=== PATIENT | female | born 1950 | race Caucasian/White ===

== ENCOUNTER 2023-10-01 17:19 | Emergency (ER) | payer MEDICARE, OTHER, SELFPAY ==
[2023-10-01 17:24] VITALS: BP 151/94
[2023-10-01 17:50] LABS: % Basophils 1.1 % (0-2); % Eosinophils 1.2 % (0-6); % Immature Granulocytes 0.5 % (0-0.5); % Lymphocytes 6.6 % (20.5-51.1); % Monocytes 6.6 % (1.7-9.3); Absolute Basophils 0.1 10^3/uL (0-0.2); Absolute Eosinophils 0.1 10^3/uL (0-0.7); Absolute Immature Granulocytes 0.1 10^3/uL (0-0.05); Absolute Lymphocytes 0.7 10^3/uL (1.2-3.4); Absolute Monocytes 0.7 10^3/uL (0.1-0.6); Absolute Neutrophils 9.2 10^3/uL (1.4-6.5); Hematocrit 36.7 % (37.0-47.0); Hemoglobin 12.4 g/dL (12.0-16.0); Mean Corp Hgb Conc. 33.8 g/dL (33.0-37.0); Mean Corpuscular Hgb 31.3 pg (27.0-31.0); Mean Corpuscular Volume 92.7 fL (81.0-99.0); Mean Platelet Volume 9.6 fL (7.4-10.4); Nucleated Red Blood Cells % 0 %; Platelet Count 440 10^3/uL (130-400); Red Blood Cell Count 3.96 10^6/uL (4.20-5.40); Red Cell Dist. Width 12.8 % (11.5-14.5)
[2023-10-01 18:12] LABS: ALT (SGPT) 20 U/L (0-35); AST (SGOT) 26 U/L (14-36); Alkaline Phosphatase 71 U/L (38-126); Blood Urea Nitrogen 9 mg/dl (7-17); Calcium 9.9 mg/dl (8.4-10.2); Carbon Dioxide 27 mmol/L (22-30); Chloride 95 mmol/L (98-107); Glucose 119 mg/dl (70-99); Potassium 4.3 mmol/L (3.5-5.1); Sodium 133 mmol/L (135-145); Total Bilirubin 0.5 mg/dl (0.2-1.3); Total Protein 7.1 g/dl (6.3-8.2); eGFR > 60.00
[2023-10-01 18:19] LABS: COVID-19 Antigen Negative (Negative)
[2023-10-01 18:23] LABS: NT-proBNP 90.6 pg/ml; Troponin I < 0.012 ng/ml
[2023-10-01] MEDS: DECADRON 10 MG PO (20:02)
[2023-10-01] MEDS: DUONEB 3 ML INH (20:03)
--- NOTE | 2023-10-01 21:58 | ED.GENMED ---
History of Present Illness
General
Chief Complaint: Cold/Flu/URI Symptoms
Source: patient
Exam Limitations: none
Time Seen by Provider: 10/01/23 18:49
Nursing documentation reviewed up to this point in time: agreed with
Travel History
Have you had any contact with someone who has COVID-19?: No
Do you have any symptoms of coronavirus? Fever > 100 degrees, chills, cough, shortness of breath, sore throat, loss of taste or smell, muscle aches, or headache?: No
History of Present Illness
History of Present Illness:
72-year-old female ex-smoker, history of HTN, GERD, anxiety, HTN, has been told she has COPD but it has never 'bothered me,' presents stating she has had 2 to 3 weeks of a cough, decreased appetite and dyspnea on exertion stating 'I cannot even walk
across the room without getting short of breath. She states her cough is productive of yellow sputum. She went to urgent care on 09/20 and was started on Augmentin 875 twice daily and benzonatate capsules with no improvement, went back to urgent
care on 09/23 and was given a prescription for albuterol inhaler which she has not filled yet. She denies fever or chills. Denies shortness of breath. Denies N/V/D/C.
Past History
Past History
ED Past Medical History: GERD, HTN and Psychiatric (Anxiety)
ED Past Surgical History: Gynecological
Social History
Tobacco: Former smoker
Alcohol: None
Personal:
Living: with family
Family History
Family History: Early CAD
Review of Systems
Review of Systems
Allergies reviewed?: Yes
All Other Systems: ROS reviewed and negative except as documented in HPI and ROS
Constitutional: Denies fever
EENT: Denies sore throat
Respiratory: Reports cough and trouble breathing (COSME)
Cardiac: Denies chest pain
ABD/GI: Denies abdominal pain, nausea, vomiting or diarrhea
: Denies dysuria or difficulty voiding
Musculoskeletal: Reports no symptoms
Skin: Reports no symptoms
Neurological: Reports no symptoms
Phy Exam
Physical Exam
Physical Exam:
GENERAL: No acute distress. A&Ox3.
CONSTITUTIONAL: Afebrile.
EYES: clear, conjunctivae normal
ENMT: moist mucus membranes, Pharynx nl
RESPIRATORY: Regular respirations, nonlabored, lungs with mild expiratory wheezes, decreased BS
CARDIOVASCULAR: Regular rate and rhythm, no murmurs, no rubs.
GI: Soft, nontender, normal BS
MUSCULOSKELETAL: Moves with ease. Well perfused.
SKIN: Warm, dry, pink
PSYCH: Normal mood and affect. Well kept, interactive and appropriate
NEUROLOGIC: Awake, alert and oriented. No focal neurological deficits
Course
Orders/Labs/Results
Orders:
Orders
10/01/23 17:29
Electrocardiogram (*1) Urgent
Reason for Study: Shortness of Breath
CR Chest - 2 Views Urgent
Comment:
Reason For Exam: shortness of breath
10/01/23 17:30
EKG- Treatment ONCE
10/01/23 17:36
COVID-19 Antigen Urgent
Source: Nasal Swab
Complete Blood Count/With Diff Urgent
Comprehensive Metabolic Panel Urgent
NT-proBNP Urgent
Troponin I Urgent
Influenza A+B Rapid Molecular Urgent
[place] Source: Nasal Swab
Specimen Description:
10/01/23 19:13
Ipratropium/Albuterol Sulfate [Duoneb] 3 ml INH R NOW ONE
10/01/23 19:15
Dexamethasone [Decadron] 10 mg PO NOW STA
10/01/23 22:16
LevoFLOXacin [Levaquin] 750 mg PO NOW STA
Abnormal Lab Results
10/01/23
17:36
WBC 11.0 H 10^3/uL
(4.8-10.8)
RBC 3.96 L 10^6/uL
(4.20-5.40)
Hct 36.7 L %
(37.0-47.0)
MCH 31.3 H pg
(27.0-31.0)
Plt Count 440 H 10^3/uL
(130-400)
Abs Immat Gran (auto) 0.1 H 10^3/uL
(0-0.05)
Absolute Neuts (auto) 9.2 H 10^3/uL
(1.4-6.5)
Absolute Lymphs (auto) 0.7 L 10^3/uL
(1.2-3.4)
Absolute Monos (auto) 0.7 H 10^3/uL
(0.1-0.6)
Neutrophils % 84.0 H %
(42.2-75.2)
Lymphocytes % 6.6 L %
(20.5-51.1)
Sodium 133 L mmol/L
(135-145)
Chloride 95 L mmol/L
(98-107)
Creatinine 0.5 L mg/dL
(0.6-1.0)
Glucose 119 H mg/dl
(70-99)
10/01/23 17:36
10/01/23 17:36
Vital Signs
Initial and Last Documented VS:
Initial Vital Signs
Temp Pulse Resp BP Pulse Ox
98.3 F 103 18 151/94 96
10/01/23 17:24 10/01/23 17:24 10/01/23 17:24 10/01/23 17:24 10/01/23 17:24
Last Documented Vital Signs
Temp Pulse Resp BP Pulse Ox
98.3 F 103 18 151/94 96
10/01/23 17:24 10/01/23 17:24 10/01/23 17:24 10/01/23 17:24 10/01/23 17:24
Compressed Yeast Supervisor consulted with Physician
Compressed Yeast Supervisor consulted with physician?: Yes
Name of Physician Consulted: Shari
MDM/Problems Addressed
Differential Diagnosis Includes:
COVID, bronchitis, influenza, pneumonia
MDM/Problems Addressed:
72-year-old female ex-smoker, history of HTN, GERD, anxiety, HTN, has been told she has COPD but it has never 'bothered me,' presents stating she has had 2 to 3 weeks of a cough, decreased appetite and dyspnea on exertion stating 'I cannot even walk
across the room without getting short of breath. She states her cough is productive of yellow sputum. She went to urgent care on 09/20 and was started on Augmentin 875 twice daily and benzonatate capsules with no improvement, went back to urgent
care on 09/23 and was given a prescription for albuterol inhaler which she has not filled yet. She denies fever or chills. Denies shortness of breath. Denies N/V/D/C.
Afebrile
10/01/2023 1900 PM
CBC with mildly elevated neutrophils
CMP with no clinically significant abnormality
Troponin normal
BNP normal
COVID-negative
Influenza negative
Patient pulse ox 92 to 94% on room air at rest
10/01/2023 2204 PM
After DuoNeb, Decadron IV pulse ox is maintaining at 94 to 95% on room air. Patient states she does feel better. She has intermittent cough with yellow sputum.
Chest x-ray: Radiology for read: Right lower lobe pneumonia
10/01/2023 2205 PM
Patient ambulated around the hallway and maintained her pulse ox at 94 to 95%.
She is stable to be discharged home and is comfortable going home
Questionable allergy to Tetracycline, failing Augmentin, Prescription for Levaquin 750 daily x 7 days ordered. she has prescription for albuterol inhaler waiting at pharmacy
She has a pre scheduled appointment with her PCP tomorrow which she will keep
Chronic conditions affecting care: COPD
*Critical Care Note
Total Time (30-74mins, 75-104mins- exclusive of procedures): Not Applicable
ED Attending Note
-
Portions of this chart may have been created with voice recognition software.� Occasional wrong word or��sound alike� substitutions may have occurred due to the inherent limitations of voice recognition software.
Discharge Plan
Departure
Patient Disposition: Home (Routine Discharge)
Date of Disposition: 10/01/23
Time of Disposition: 21:57
Patient with high blood pressure during this ER visit?: Yes
Condition: Fair
Covid-19: Negative COVID-19
Discharge Problem:
Pneumonia, community aquired
Instructions: Community-Acquired Pneumonia, Adult (DC)
Prescriptions:
New
levofloxacin 750 mg tablet
750 mg PO DAILY 6 Days Qty: 6 0RF
No Action
metoprolol succinate 50 MG tablet extended release 24 hr
50 mg PO DAILY
aspirin,buffd-calcium carb-mag 325 MG tablet
325 mg PO DAILY
alprazolam 0.25 MG tablet
0.25 mg PO DAILY
naproxen 500 MG tablet,delayed release (DR/EC)
500 mg PO BID
amoxicillin-pot clavulanate 1 EACH tablet
1 ea PO BID
levofloxacin 500 MG tablet
500 mg PO DAILY 7 Days 0RF
Referrals:
Shelby Downey, [Family Provider] - Keep scheduled appt
Activity Restrictions/Additional Instructions:
As we discussed, due to the questionable allergy to doxycycline, and the fact that you have been on Augmentin for 6 days with no improvement, I sent a prescription to your pharmacy for Levaquin 750 mg daily for the next 6 days, you received your
first dose here today.
Drink plenty of fluids
See your doctor tomorrow as scheduled
Interventions
Interventions:
*Risk Screen - Suicide Last Done: 10/01/23 22:39
*General Assessment Last Done: 10/01/23 22:39
*ED COVID-19 Vaccine History Last Done: 10/01/23 17:29
*Nursing Disposition Last Done: 10/01/23 22:39
ED- Pulmonary Assessment Last Done: 10/01/23 20:07
Discharge Date and Time
Discharge Date/Time: 10/01/23 22:42
[2023-10-01] MEDS: LEVAQUIN 750 MG PO (22:31)
== END 2023-10-01 22:42 | disposition home or self-care (01) ==
LOC: EMR 17:19
PROVIDERS: Emergency Medicine; EMERGENCY PHYSICIAN Emergency Medicine; FAMILY PHYSICIAN Family Medicine Geriatric Medicine
DX: J18.9 Pneumonia, unspecified organism (principal); I10 Essential (primary) hypertension; K21.9 Gastro-esophageal reflux disease without esophagitis; Z87.891 Personal history of nicotine dependence; F41.9 Anxiety disorder, unspecified
CPT/HCPCS: 99283; 94640; 71046; 80053; 83880; 84484; 85025; 87502; 87811; 93005

== ENCOUNTER 2025-05-04 22:32 | Emergency (ER) | payer MEDICARE, OTHER, SELFPAY ==
[2025-05-04 22:35] VITALS: BP 142/69
[2025-05-05 02:18] VITALS: BP 136/59
--- NOTE | 2025-05-05 02:29 | ED.SKININJ ---
HPI-Injury
General
Chief Complaint: Skin Problem
Source: patient
Exam Limitations: none
Time Seen by Provider: 05/05/25 02:12
Nursing documentation reviewed up to this point in time: agreed with
History of Present Illness-Injury
Initial Injury comments:
Note:
CHIEF COMPLAINT(S)
Itchy rash.
HISTORY OF PRESENT ILLNESS
The patient is a 74-year-old female who presents with a rash that she believes may be related to poison kathrine exposure. The rash developed after working on a property and spending time in a large garage. She describes the rash as appearing similar to
poison kathrine on one side, but on the other side, areas appear potentially infected. However, there is no current evidence of infection such as tracking or redness. The patient is concerned about whether the rash could be insect bites or poison kathrine,
and it has been waking her up during the night.
The rash is not accompanied by systemic symptoms, and the patient denies any history of diabetes. She mentions having a systemic steroid, Dexamethasone, available for use. The patient is considering the use of both topical and oral treatments. She
is advised to proceed with a one-time dose of an oral steroid to manage symptoms, along with using topical Benadryl cream and oglo-ans-sonpeyx 1% hydrocortisone cream as needed.
There is also concern about a possible infestation in the house, as they have noticed similar rashes in the past. She is advised to shower quickly and leave shoes outside.
PHYSICAL EXAM
General: Alert, no acute distress.
Skin: Rash consistent with poison kathrine, no evidence of infection.
Neck: Supple, trachea midline.
Eye, Ears, Nose, Mouth, and Throat: Oral mucosa moist.
Cardiovascular: Normal peripheral perfusion, No edema.
Respiratory: Respirations are non-labored.
Gastrointestinal : Abdomen nondistended.
Back: Normal range of motion, Normal alignment.
Musculoskeletal: Normal ROM, normal strength.
Neurological: Alert and oriented to person, place, time, and situation, No focal neurological deficit observed.
Psychiatric: Cooperative, appropriate mood & affect.
PLAN
1. Administer a one-time dose of oral steroid, Dexamethasone, to manage the rash.
2. Continue using Benadryl cream externally for itch relief.
3. Use obvo-tgv-kawmbla 1% hydrocortisone cream as needed.
4. Patient advised to take oral Benadryl at night to help with sleep and reduce itching.
5. Patient advised on environmental control measures: shower after potential exposure and leave shoes outside to prevent re-exposure to potential irritants.
DIFFERENTIAL DIAGNOSIS
The Differential Diagnosis includes, in no particular order and is not limited to:
1. Poison Kathrine Dermatitis
2. Insect Bites
3. Allergic Dermatitis
4. Contact Dermatitis
5. Fungal Infection
6. Cellulitis
7. Psoriasis
8. Eczema
9. Scabies
10. Drug Rash
Disposition:
SUMMARY OF ENCOUNTER
The patient, a 74-year-old female, presented with an itchy rash potentially related to poison kathrine or insect bites after working in a garden and cleaning an old residence. Examination revealed a pruritic linear rash and punctate lesions, especially
around the ankles, suggestive of bug bites. The patients symptoms include itchiness severe enough to disturb sleep.
ASSESSMENT
The rash and punctate lesions are consistent with poison kathrine dermatitis or insect bites. The presentation suggests possible contact dermatitis or allergic reaction.
EMERGENCY TREATMENTS ADMINISTERED
A one-time dose of oral Dexamethasone was administered. The patient is advised to use jebp-dre-mspziug 1% hydrocortisone cream.
PLAN
The patient is advised to continue using topical diphenhydramine (Benadryl) cream for itch relief and take oral diphenhydramine at night to aid sleep. Environmental control measures, such as showering after exposure and leaving shoes outside, are
recommended.
PATIENT EDUCATION AND COUNSELING
The patient was counseled on the potential causes of the rash, including poison kathrine and insect bites, and advised on preventive measures to avoid re-exposure.
MEDICATION RECONCILIATION
1. Dexamethasone, one-time oral dose administered.
2. Diphenhydramine cream (topical) for itch relief.
3. 1% Hydrocortisone cream (ovtp-xyf-doikqeu) for topical use as needed.
MEDICAL DECISION MAKING
- Complexity of Data Reviewed: The differential diagnosis includes poison kathrine dermatitis, insect bites, allergic dermatitis, contact dermatitis, fungal infection, cellulitis, psoriasis, eczema, scabies, and drug rash.
- Data:
- Category 1: Review of the patients reported symptoms and self-treatment with diphenhydramine cream.
- Risk: Prescription drug management with Dexamethasone was prescribed, and risk mitigation strategies were discussed, including environmental control and ebwi-frc-uupptvk topical treatments.
DIAGNOSIS
1. Poison Kathrine Dermatitis (L23.7)
2. Insect Bites (T07)
Past History
Past History
ED Past Medical History: GERD, HTN and Psychiatric (Anxiety)
ED Past Surgical History: Gynecological
Social History
Tobacco: Former smoker
Alcohol: None
Personal:
Living: with family
Family History
Family History: Early CAD
Phy Exam
Physical Exam
Physical Exam:
.
Course
Orders/Labs/Results
Orders:
Orders
05/04/25 22:39
Wrist, Right 3 Views [CR Wrist - Right Min 3 Views] Urgent
Comment:
Reason For Exam: swelling
05/05/25 02:26
Dexamethasone Pf [Decadron] 10 mg PO NOW STA
Vital Signs
Initial and Last Documented VS:
Initial Vital Signs
Temp Pulse Resp BP Pulse Ox
98.1 F 65 16 142/69 98
05/04/25 22:35 05/04/25 22:35 05/04/25 22:35 05/04/25 22:35 05/04/25 22:35
Last Documented Vital Signs
Temp Pulse Resp BP Pulse Ox
98.1 F 55 14 136/59 99
08/24/25 22:35 05/05/25 02:18 05/05/25 02:18 05/05/25 02:18 05/05/25 02:33
*Pulse Oximetry
SaO2: 99
Oxygen Mode of Delivery: Room air
Patient hypoxic: no
*Critical Care Note
Total Time (30-74mins, 75-104mins- exclusive of procedures): Not Applicable
ED Attending Note
-
Portions of this chart may have been created with voice recognition software.� Occasional wrong word or��sound alike� substitutions may have occurred due to the inherent limitations of voice recognition software.
Discharge Plan
Departure
Patient Disposition: Home (Routine Discharge)
Date of Disposition: 05/05/25
Time of Disposition: 02:30
Patient with high blood pressure during this ER visit?: Yes
Discharge Problem:
Poison kathrine, Bug bite
Prescriptions:
No Action
metoprolol succinate 50 MG tablet extended release 24 hr
50 mg PO HS
cholecalciferol (vitamin D3) [Vitamin D3] 25 mcg (1,000 unit) Capsule
25 mcg PO DAILY
Activity Restrictions/Additional Instructions:
Thank You for choosing [facility].
It was a pleasure meeting you and taking part in your care. We hope for your continued healing and wellness.
Please read discharge instructions in their entirety. However, they are for general education and may not describe your exact diagnosis at discharge. Information on your ER visit and medical conditions were discussed with you along with appropriate
follow up information...
If indicated, please take your medications as instructed and indicated on discharge paperwork.
Please schedule a follow up appointment as directed. Call to schedule an appointment
Please return to the emergency department with ANY change in, persisting, or worsening of symptoms. If any of your symptoms do not improve, or persist, or become more severe within 6-12 hours, please return to the emergency department for further
care.
Please return to the emergency department if you develop a headache, neck pain/stiffness, fever greater than 100.4F, chest pain, shortness of breath, persistent nausea, vomiting, slurred speech, difficulty walking, numbness/tingling, weakness, signs
of infection or any other symptoms that are worrisome to you.
If you have any questions or concerns please do not hesitate to call the Hospital at or E-mail me directly at [email or web address]
Interventions
Interventions:
*Risk Screen - Suicide Last Done: 05/05/25 02:16
*General Assessment Last Done: 05/05/25 02:16
*Neglect/Abuse Screening Last Done: 05/05/25 02:16
*ED- Fall Risk Assessment Last Done: 05/05/25 02:17
*Nursing Disposition Last Done: 05/05/25 02:40
ED-Skin Assessment Last Done: 05/05/25 02:20
Discharge Date and Time
Discharge Date/Time: 05/05/25 02:40
Print Language: MONGOLIAN
== END 2025-05-05 02:40 | disposition home or self-care (01) ==
LOC: EMR 22:32
PROVIDERS: EMERGENCY PHYSICIAN Student in an Organized Health Care Education/Training Program; FAMILY PHYSICIAN Internal Medicine
DX: L23.7 Allergic contact dermatitis due to plants, except food (principal); S60.861A Insect bite (nonvenomous) of right wrist, initial encounter; W57.XXXA Bitten or stung by nonvenomous insect and other nonvenomous arthropods, initial encounter; I10 Essential (primary) hypertension; K21.9 Gastro-esophageal reflux disease without esophagitis; F41.9 Anxiety disorder, unspecified; Z87.891 Personal history of nicotine dependence; Z82.49 Family history of ischemic heart disease and other diseases of the circulatory system
CPT/HCPCS: 99283; 73110